=== PATIENT | female | born 1970 | race Caucasian/White ===

== ENCOUNTER → 2018-01-08 | Day surgery (SDC) | payer OTHER ==
[~2018-01-08] MED LIST: DEXAMETHASONE SOD PHOS 20 MG/5 ML VIAL.; LIDOCAINE 1% PF 5 ML VIAL.; MORPHINE SULFATE 4 MG/ML DISP.SYRIN. IV; ONDANSETRON PF 4 MG/2 ML VIAL.; ONDANSETRON PF 4 MG/2 ML VIAL. IV; PROCHLORPERAZINE 10 MG/2 ML VIAL. IV; PROPOFOL 20 ML IV; ROCURONIUM 50 MG/5 ML VIAL.; SEVOFLURANE 31 TO 60 MINUTES. IH; ceFAZolin 2GM PREMIX 2 GM/50 ML BAG IV; fentaNYL PF VIAL 100 MCG/2 ML VIAL; oxyCODONE/APAP 5/325 1 TAB TABLET PO
[2018-01-08] MEDS: IV RINGERS,LACTATED 1000ML 1,000 ML IV (10:55)
[2018-01-08] MEDS: BUPIVACAINE-EPI 0.25%-1:200000 50 ML VIAL. (12:17)
[2018-01-08] MEDS: BACITRACIN TOPICAL OINT 14GM TUBE. TP (12:24)
[2018-01-08] MEDS: fentaNYL PF VIAL 100 MCG/2 ML VIAL IV ×3 (13:04→13:25)
[2018-01-08] MEDS: LIDOCAINE 1% PF 2 ML VIAL. ID (13:24)
[2018-01-08] MEDS: oxyCODONE/APAP 5/325 1 TAB TABLET PO (13:32)
== END | disposition home or self-care (01) ==
LOC: SURG 10:21
DX: K64.4 Residual hemorrhoidal skin tags (principal); K64.8 Other hemorrhoids; I10 Essential (primary) hypertension; M19.90 Unspecified osteoarthritis, unspecified site; F32.9 Major depressive disorder, single episode, unspecified; F41.9 Anxiety disorder, unspecified; F17.200 Nicotine dependence, unspecified, uncomplicated; Z90.49 Acquired absence of other specified parts of digestive tract; Z98.890 Other specified postprocedural states; Z98.51 Tubal ligation status; Z90.710 Acquired absence of both cervix and uterus; Z90.721 Acquired absence of ovaries, unilateral
CPT/HCPCS: 46260; 88304; J0690; J1100; J2405; J2704; J3010

== ENCOUNTER → 2018-10-25 | Outpatient (CLI) | payer OTHER ==
[2018-01-08 13:50] VITALS: BP 135/70
[~2018-10-25] MED LIST changes: +CLON1TAB11 PO; -DEXAMETHASONE SOD PHOS 20 MG/5 ML VIAL.; +DULO30CA2 PO; +GABA600T7 PO; +HYDR-2145 PO; +IBUP-1060 PO; -LIDOCAINE 1% PF 5 ML VIAL.; -MORPHINE SULFATE 4 MG/ML DISP.SYRIN. IV; -ONDANSETRON PF 4 MG/2 ML VIAL.; -ONDANSETRON PF 4 MG/2 ML VIAL. IV; -PROCHLORPERAZINE 10 MG/2 ML VIAL. IV; -PROPOFOL 20 ML IV; -ROCURONIUM 50 MG/5 ML VIAL.; -SEVOFLURANE 31 TO 60 MINUTES. IH; +TIZA4TAB PO; +TOPI200T25 PO; +TRAM50TA PO; +TRAZ150T49 PO; +TRAZ300T2 PO; +VALS160T3 PO; +VERA120T PO; +VERA240C2 PO; -ceFAZolin 2GM PREMIX 2 GM/50 ML BAG IV; -fentaNYL PF VIAL 100 MCG/2 ML VIAL; -oxyCODONE/APAP 5/325 1 TAB TABLET PO
--- NOTE | 2018-10-25 12:41 | KCIC ---
EXAM: Cervical spine MRI without contrast. HISTORY: Pain. TECHNIQUE: Multiplanar, multisequence magnetic resonance imaging of the cervical spine was performed without contrast. COMPARISON: 11/09/2017 FINDINGS: There is no significant listhesis. The vertebral maldonado are normal in height. There is no suspicious osseous lesion. There is a suspected bone island within T1. There are disc bulges at multiple levels. There is slight deformation of the cervical spinal cord at multiple levels. No central canal stenosis or spinal cord signal abnormality is seen. The posterior fossa and skull base are unremarkable. At C2-C3, there is minimal endplate remodeling. There is minimal facet arthropathy. There is no stenosis. At C3-C4, there is minimal endplate remodeling. There is minimal right and mild left facet arthropathy. There is no stenosis. At C4-C5, there is minimal endplate remodeling. There is mild bilateral facet arthropathy. There is mild left foraminal stenosis. At C5-C6, there is a shallow broad-based posterior central to right paracentral disc protrusion superimposed on minimal endplate remodeling. There is minimal right and mild left facet arthropathy. There is minimal left foraminal stenosis. There is abutment of the right ventral aspect of the spinal cord without significant central canal stenosis. At C6-C7, there is a posterior central to left paracentral disc protrusion. There is minimal facet arthropathy. There are incidental small dilated nerve root sheath cysts within the neural foramina. There is no significant stenosis. At C7-T1, there is mild facet arthropathy. There is minimal left foraminal stenosis. IMPRESSION: Minimal degenerative change within the cervical spine, described in detail above. There is suspected mild associated left foraminal stenosis at C4-C5 and minimal associated left foraminal stenosis at C5-C6. These findings are similar compared to the prior study, allowing for differences in imaging technique. Electronically signed by: Usha So MD (10/25/2018 12:38 PM) [facility]
== END | disposition home or self-care (01) ==
LOC: KCIC MRI 11:03
DX: M47.892 Other spondylosis, cervical region (principal); M12.88 Other specific arthropathies, not elsewhere classified, other specified site; M50.222 Other cervical disc displacement at C5-C6 level; Z90.710 Acquired absence of both cervix and uterus
CPT/HCPCS: 72141

== ENCOUNTER 2019-08-13 20:30 | Inpatient (IN) | payer OTHER ==
[~2019-08-13] VITALS: Ht 172.7 cm; Wt 96.2 kg
[~2019-08-13 20:30] MED LIST changes: -CLON1TAB11 PO; +CLONAZEPAM1 MG PO; -TIZA4TAB PO; +TIZA4TAB2 PO
[2019-08-13] MEDS: HYDROmorphone 2 MG/ML VIAL IV PRN (22:16)
[2019-08-13 23:00] VITALS: BP 135/64
[2019-08-14] MEDS ORDERED: TELM80TA8 (00:42)
[2019-08-14] MEDS ORDERED: VERA240C4 (00:42)
[2019-08-14] MEDS: HYDROmorphone 2 MG/ML VIAL IV PRN ×6 (01:52→20:05)
[2019-08-14] MEDS ORDERED: PRAM0.5T (02:05)
[2019-08-14] MEDS ORDERED: TRAZ150T49 (02:05)
[2019-08-14 03:00] VITALS: BP 132/72
[2019-08-14 05:14] LABS: BASO % 0 % (0-3); EOS # 0.1 x10^3/uL (0.0-0.7); EOS % 1 % (0-3); HEMATOCRIT 38.8 % (36.0-47.0); HEMOGLOBIN 12.9 g/dL (12.0-15.5); LYMPH # 1.9 x10^3/uL (1.0-4.8); LYMPH % 23 % (24-48); MEAN CORPUSCULAR HEMOGLOBIN 30 pg (25-35); MEAN CORPUSCULAR HGB CONC 33 g/dL (31-37); MEAN CORPUSCULAR VOLUME 89 fL (79-100); MONO # 0.5 x10^3/uL (0.0-1.1); MONO % 6 % (0-9); NEUT # 5.7 x10^3/uL (1.8-7.7); NEUT % 70 % (31-73); PLATELET COUNT 173 x10^3/uL (140-400); RED BLOOD COUNT 4.37 x10^6/uL (3.50-5.40); WHITE BLOOD COUNT 8.2 x10^3/uL (4.0-11.0)
[2019-08-14 05:46] LABS: ALBUMIN 3.5 g/dL (3.4-5.0); C-REACTIVE PROTEIN 3.5 mg/L (0-3.3); CALCIUM 8.8 mg/dL (8.5-10.1); CREATININE 0.8 mg/dL (0.6-1.0); GFR 75.9; POTASSIUM 3.8 mmol/L (3.5-5.1); TOTAL BILIRUBIN 0.2 mg/dL (0.2-1.0); TOTAL PROTEIN 7.1 g/dL (6.4-8.2)
[2019-08-14 07:00] VITALS: BP 140/78
[2019-08-14 11:00] VITALS: BP 119/71
--- NOTE | 2019-08-14 12:26 | HP ---
ADMIT DATE: 08/13/2019 HISTORY OF PRESENT ILLNESS: The patient is a 49-year-old female patient who presented to the Emergency Room of [facility] complaining of mid abdominal pain that has been going on for the last 2 months, has gotten a lot worse over the last 2 days. She rates her pain as a 10/10. She did complain of nausea, but no vomiting. She denied any diarrhea. The patient states her last normal bowel movement was on Sunday, which is about for 3 days ago. She also denied any chest pain or shortness of breath, had no fever. Denied any urinary discomfort. The pain medication improves the pain, but the food is at the times aggravated. She was extensively investigated in the Emergency Room and has had lab work done, which showed that her white cell count, hemoglobin, hematocrit and platelets are all within normal range. Her chemistry was also unremarkable. Urinalysis was also unremarkable. She has had a CT scan of the abdomen and pelvis, which basically showed that the liver, spleen and bilateral adrenal glands and pancreas are normal in appearance, gallbladder surgically absent. No significant intrahepatic or extrahepatic biliary ductal dilatation. The abdominal aorta is normal in course and caliber. There are no pathologically enlarged lymph nodes in the abdomen and pelvis. There is no abdominal free fluid. There is no free intraperitoneal air. Kidneys enhance symmetrically. There is a 3 mm calculus in the inferior pole of the right kidney. No hydronephrosis. There is a 10-mm cyst in the interpolar left kidney. Urinary bladder is within normal limits given degree of distention. There is a cystic lesion, which arises off the vaginal cuff and measures 2.3 x 2.4 cm. Small and large bowels are normal in caliber. No evidence of bowel obstruction or inflammation. Appendix not definitely visualized. No pericecal inflammatory changes are present. No suspicious osseous abnormalities identified and the impression is, there is no acute abnormality identified in the abdomen and pelvis. She has 3 mm nonobstructing calculus identified in the inferior border of the right kidney, cystic lesion along the vaginal cuff measuring 2.3 x 2.4 cm, this appears more similar compared to prior examination with similar finding is noted measuring approximately 1.7 x 1.8. Given that, there is no abnormality that is obvious, a decision was made to transfer her to [facility] to consult the garnetter and perhaps the surgical team to assist with evaluation. PAST MEDICAL HISTORY: Significant for hypertension, osteoarthritis, and migraine headache. PAST SURGICAL HISTORY: History is extensive. She has had tonsillectomy, breast reduction surgery, back surgery, bilateral shoulder arthroscopic surgery, right ulnar nerve transposition, appendectomy, cholecystectomy and she has tubal ligation, right ovary and right salpingectomy, had total abdominal hysterectomy followed by left ovary and left salpingectomy. She has bilateral knee arthroscopic surgery and left foot fusion. She has also esophageal stricture dilated 3 times and she underwent esophagogastroduodenoscopy and colonoscopy. ALLERGIES: SHE IS ALLERGIC TO ATROPINE, TITANIUM, TIZANIDINE, VARENICLINE TARTRATE (CHANTIX). MEDICATIONS: She is currently on following medications: She is on albuterol sulfate 2 puffs every 4 hours, verapamil 120 mg daily, Celebrex 200 mg daily, meloxicam 7.5 mg daily, naproxen 375 mg, hydrocodone/APAP 15 mL solution every 6 hours, gabapentin 600 mg daily, Topamax 200 mg once a day, rizatriptan one tablet as needed, prednisone 50 mg daily, Lidoderm patch applied topically 3 times a day as needed. FAMILY HISTORY: She has 4 brothers and one sister, older. Her father at age of 57 because of lung cancer and mother at the age of 82 because of congestive heart failure. SOCIAL HISTORY: She is , has a son and a daughter. She quit smoking about 3 months ago. She used to smoke 1-1/2 to 2 packs a day for more than 15 years. She does not use any illicit drugs. She used to be a elementary school principal. REVIEW OF SYSTEMS: The patient denies any blurring of vision, cataract, glaucoma or macular degeneration. Denied any earache, tinnitus or sensorineural deafness. Denied any nosebleeds, stuffy nose or postnasal drip. Denied any sore throat, sore tongue. Has nausea, but no vomiting. Did complain of dysphagia and required dilatation versus esophageal stricture 3 times. Denied any hematemesis, melena or hematochezia. Denied any dysuria, frequency or hematuria. Denied any chest pain, orthopnea, or paroxysmal nocturnal dyspnea. Denied any cough, phlegm or hemoptysis. PHYSICAL EXAMINATION: GENERAL: On arrival to the Emergency Room, she looked well and was clearly in no apparent respiratory distress. No pallor, jaundice, cyanosis or thyromegaly. No jugular venous distention. No limb edema. VITAL SIGNS: Her heart rate was 81, blood pressure was 131/71, temperature was 97.9, respiratory rate was 16, and oxygen saturation was 98%. HEAD, EYES, EARS, NOSE AND THROAT: Showed normocephalic and atraumatic. NECK: Supple. HEART: Showed normal first and second heart sounds. No gallop or murmur. CHEST: Clear to auscultation. No crepitation or rhonchi. ABDOMEN: Distended, soft and nontender. NEUROLOGIC: She was awake, alert, responding appropriately. All cranial nerves intact. EXTREMITIES: She moves extremities without difficulty. She ambulates without assistance or assistive devices. LABORATORY DATA: Showed a white cell count 11,000, hemoglobin 14.8, hematocrit 44, MCV 87 and platelet count 216,000 with normal manual differential. Her chemistry showed a serum sodium 140, potassium 3.9, chloride 103, bicarbonate 25, anion gap of 12, BUN 20, creatinine 0.8, estimated GFR was 76 mL per minute. Her glucose 93, calcium was 9.2. Her total bilirubin, AST, ALT, alkaline phosphatase were normal. Total protein 8.1, albumin was 3.9 and lipase was 136. The CT scan showed that the patient has no acute abnormality identified in the abdomen and pelvis. She has a 3 mm nonobstructing calculus identified in the inferior pole of the right kidney, has cystic lesion along the vaginal cuff measures 2.3 x 2.4 cm. ASSESSMENT AND PLAN: The patient was therefore transferred to [facility] to consult the Gastroenterology team. The patient has numerous intra-abdominal surgeries and I wonder whether adhesion is might be contributing to her abdominal pain and bloating and fullness. MELBA RHODES MD DR: MERRY/mahesh JOB#: [id number] / [id number]
--- NOTE | 2019-08-14 13:20 | PN ---
DATE: 08/14/2019 SUBJECTIVE: The patient is resting, slightly propped up in bed, in no apparent respiratory distress. On questioning her, she continued to complain of abdominal distention, abdominal bloating, and pain. She is tolerating her diet without any problem. We did actually order her sed rate and CRP. Her sedimentation rate is high at 50 mm per hour and C-reactive protein was slightly elevated at 3.5 mg/liter. PHYSICAL EXAMINATION: GENERAL: On examining her, she looked well and was clearly in no apparent respiratory distress. No pallor, jaundice, cyanosis or thyromegaly. No jugular venous distention. No limb edema. VITAL SIGNS: Her heart rate was 88, blood pressure 140/78, temperature 97.8, respiratory rate was 18, and oxygen saturation was 96% on room air. HEAD, EYES, EARS, NOSE AND THROAT: Showed normocephalic, atraumatic. NECK: Supple. CARDIAC: Normal first and second heart sounds. No gallop or murmur. CHEST: Clear to auscultation. No crepitation or rhonchi. ABDOMEN: Distended, soft, diffusely tender. No guarding or rigidity. No organomegaly. All hernial orifices are intact. Bowel sounds normal. NEUROLOGIC: She is grossly intact. LABORATORY DATA: Her lab work this morning showed a white cell count of 8200, hemoglobin 13, hematocrit 39, MCV 89, and platelet count of 173,000. Her sedimentation rate was 50 mm per hour. Serum sodium was 135, potassium 3.8, chloride 103, bicarbonate 27, anion gap of 5, BUN 18, creatinine 0.8, estimated GFR was 76 mL per minute. Her glucose was 96, calcium was 8.8. Total bilirubin, AST, ALT, alkaline phosphatase were normal. Total protein was 7.1, albumin 3.5. C-reactive protein was 3.5 mg/dL. ASSESSMENT: Persistent abdominal pain, abdominal bloating. This has been going on for almost 2 months now and worsened over the last few days. The patient has multitude of abdominal surgeries. CT scan was unremarkable except for some cystic lesion in the vaginal cuff. PLAN: My plan is to continue with her current medication and await the input from the Gastroenterology team. MELBA RHODES MD DR: MERRY/mahesh JOB#: [id number] / [id number]
--- NOTE | 2019-08-14 13:58 | PDOC2 ---
RAEGAN PETER 08/14/19 1358: GI CONSULT Reason For Consult: Abd pain x 2 months HPI: HPI: 49 y/o female from [facility]. Lower/middle abd pain x 2 months. No precipitating events. At first intermittent, maybe worse after eating sometimes. Much worse for the past few days - constant, stabbing, hurts to move, no appetite w/ some nausea. Normal stool on Sunday. Feels really bloated. Was previously seen at [place] in [place] 3 times - first had CT and told had kidney stones, then was given more pain meds and referred to urologist, then had x-ray and told pain was unlikely related to kidney stones and told she was possibly constipated. Completed bowel prep without change in symptoms. Denies reflux/heartburn, vomiting, diarrhea, constipation, melena, and weight loss. Saw red blood in stool a couple weeks ago once. H/o dysphagia w/ past esophageal dilations. More than one colonoscopy in the past - thinks last done at [facility], reportedly never abnormal. S/p cholecystectomy. No liver, pancreas, or PUD history. Occasional NSAID use. When returned to see w/ Dr. Horan, she mentioned difficulty walking short distances due to leg cramping, also says feet get cold. PMH: PMH: HTN, peripheral neuropathy, anxiety/depression, OA, fibromyalgia, seizures cholecystectomy, appendectomy, hysterectomy, BSO, breast reduction, tonsillectomy, bilateral knee and shoulder arthroscopies, left ankle arthroscopy, hemorrhoidectomy FH: Family History: Cancer (brother, father, mother - lung; another brother - p rostate w/ abnormal genetic testing), Other (mother - PVD) Social History: Smoke: <1 pack per day ALCOHOL: rare Drugs: None ROS: GEN: Denies fevers, chills, sweats HEENT: Denies blurred vision, sore throat CV: Denies chest pain RESP: Denies shortness of air, cough GI: Per HPI : Denies hematuria, dysuria ENDO: Denies weight changes NEURO: Denies confusion, dizziness MSK: Denies weakness, joint pain/swelling SKIN: Denies jaundice, pruritus Vitals: Vitals: Vital Signs Date Time Temp Pulse Resp B/P (MAP) Pulse Ox O2 Delivery O2 Flow Rate FiO2 08/14/19 12:53 20 95 Room Air 08/14/19 11:00 97.9 70 119/71 (87) 97.9 Labs: Labs: Laboratory Tests Test 08/14/19 03:55 White Blood Count 8.2 x10^3/uL (4.0-11.0) Red Blood Count 4.37 x10^6/uL (3.50-5.40) Hemoglobin 12.9 g/dL (12.0-15.5) Hematocrit 38.8 % (36.0-47.0) Mean Corpuscular Volume 89 fL (79-100) Mean Corpuscular Hemoglobin 30 pg (25-35) Mean Corpuscular Hemoglobin Concent 33 g/dL (31-37) Red Cell Distribution Width 14.0 % (11.5-14.5) Platelet Count 173 x10^3/uL (140-400) Neutrophils (%) (Auto) 70 % (31-73) Lymphocytes (%) (Auto) 23 % (24-48) Monocytes (%) (Auto) 6 % (0-9) Eosinophils (%) (Auto) 1 % (0-3) Basophils (%) (Auto) 0 % (0-3) Neutrophils # (Auto) 5.7 x10^3/uL (1.8-7.7) Lymphocytes # (Auto) 1.9 x10^3/uL (1.0-4.8) Monocytes # (Auto) 0.5 x10^3/uL (0.0-1.1) Eosinophils # (Auto) 0.1 x10^3/uL (0.0-0.7) Basophils # (Auto) 0.0 x10^3/uL (0.0-0.2) Erythrocyte Sedimentation Rate 50 (0-25) Sodium Level 135 mmol/L (136-145) Potassium Level 3.8 mmol/L (3.5-5.1) Chloride Level 103 mmol/L (98-107) Carbon Dioxide Level 27 mmol/L (21-32) Anion Gap 5 (6-14) Blood Urea Nitrogen 18 mg/dL (7-20) Creatinine 0.8 mg/dL (0.6-1.0) Estimated GFR (Cockcroft-Gault) 75.9 BUN/Creatinine Ratio 23 (6-20) Glucose Level 96 mg/dL (70-99) Calcium Level 8.8 mg/dL (8.5-10.1) Total Bilirubin 0.2 mg/dL (0.2-1.0) Aspartate Amino Transf (AST/SGOT) 8 U/L (15-37) Alanine Aminotransferase (ALT/SGPT) 10 U/L (14-59) Alkaline Phosphatase 60 U/L (46-116) C-Reactive Protein, Quantitative 3.5 mg/L (0-3.3) Total Protein 7.1 g/dL (6.4-8.2) Albumin 3.5 g/dL (3.4-5.0) Albumin/Globulin Ratio 1.0 (1.0-1.7) Allergies: Coded Allergies: atropine (Verified Allergy, Intermediate, Hives, 01/08/18) titanium (Verified Allergy, Intermediate, SKIN ON AREA TURNED BLACK (ORTHO SX), 08/13/19) tizanidine (Verified Allergy, Intermediate, HIVES -BUT TAKES TIZANIDINE PRN & NO PROBLEM, 01/08/18) varenicline (Verified Allergy, Intermediate, SEIZURES, 08/13/19) Medications: Current Medications Medications (Trade) Dose Ordered Sig/Mike Route PRN Reason Start Time Stop Time Status Last Admin Dose Admin Hydromorphone HCl (Dilaudid) 1 mg PRN Q3HRS PRN IV SEVERE PAIN 7-10 08/13/19 21:30 08/14/19 12:53 Imaging: Imaging: CT A/P w/ IV contrast 08/13/19 No acute abnormality. 3mm nonobstructing calculus in inferior pole of right kidney. Cystic lesion along vaginal cuff (present also in 2011). PE: GEN: uncomfortable HEENT: Atraumatic, PERRL LUNGS: CTAB HEART: RRR ABD: quiet BS, some distention, diffuse discomfort EXTREMITY: No edema SKIN: No rashes, no jaundice NEURO/PSYCH: A & O 3 A/P: A/P: Lower abd pain, nausea/decreased appetite, bloating - CT unrevealing H/o esophageal dilations CRC screen - UTD S/p cholecystectomy, multiple abd surgeries BLE cramping w/ exertion, nephrolithiasis +tobacco -- Check SBS and EM, also ask for surgery opinion. TITO HORAN MD 08/14/19 1939: RAEGAN PETER Aug 14, 2019 13:58 TITO HORAN MD Aug 14, 2019 14:02
[2019-08-14 15:00] VITALS: BP 143/75
[2019-08-14 19:00] VITALS: BP 144/75
[2019-08-14] MEDS: FAMOTIDINE 20 MG/2 ML VIAL IVP SCH (21:52)
[2019-08-14] MEDS: traZODone 50 MG TABLET. PO SCH (21:53)
[2019-08-14] MEDS: VERAPAMIL SR 120 MG TABLET.ER. PO SCH (21:53)
[2019-08-14 23:00] VITALS: BP 98/51
[2019-08-15 03:00] VITALS: BP 91/56
[2019-08-15] MEDS: HYDROmorphone 2 MG/ML VIAL IV PRN ×3 (03:03→11:45)
[2019-08-15 05:34] LABS: HEMATOCRIT 42.7 % (36.0-47.0); HEMOGLOBIN 14.2 g/dL (12.0-15.5); RED BLOOD COUNT 4.83 x10^6/uL (3.50-5.40); RED CELL DISTRIBUTION WIDTH 14.1 % (11.5-14.5); WHITE BLOOD COUNT 10.8 x10^3/uL (4.0-11.0)
[2019-08-15 06:03] LABS: CALCIUM 9.2 mg/dL (8.5-10.1); CREATININE 0.8 mg/dL (0.6-1.0); GFR 75.9; POTASSIUM 3.6 mmol/L (3.5-5.1); TOTAL BILIRUBIN 0.4 mg/dL (0.2-1.0); TOTAL PROTEIN 7.9 g/dL (6.4-8.2)
[2019-08-15] MEDS: FAMOTIDINE 20 MG/2 ML VIAL IVP SCH (08:00)
[2019-08-15 08:04] VITALS: BP 98/44
--- NOTE | 2019-08-15 08:07 | PDOC2 ---
AR FONTENOT STUDY MANAGER 08/15/19 0807: CONSULT Date of Consult Date of Consult DATE: 08/15/19 TIME: 08:00 Reason for Consult Reason for Consult: abdominal pain Referring Physician Referring Physician: Dr Horan Identification/Chief Complaint Chief Complaint abdominal pain Source Source: Chart review, Patient History of Present Illness Reason for Visit: Reports lower abdominal pain x 2 months, has been seen multiple times [place]--treated for kidney stone, urology evaluated, treated for constipation. Nothing has improved the pain. Colonoscopy in past. Denies any diarrhea Pain has been progressively worsening, + associated nausea, may be worse after eating sometimes Hx of yomi, appy, hysterectomy Previous hemorrhoidectomy with Dr Gilmore last year Past Medical History Cardiovascular: HTN Pulmonary: No pertinent hx CENTRAL NERVOUS SYSTEM: Periperal neuropathy, Seizure GI: No pertinent hx Heme/Onc: No pertinent hx Hepatobiliary: No pertinent hx Psych: Anxiety, Depression Musculoskeletal: Osteoarthritis Rheumatologic: Fibromyalgia Infectious disease: No pertinent hx Renal/: No pertinent hx Endocrine: No pertinent hx Past Surgical History Past Surgical History: Arthroscopy, Cholecystectomy, Tonsillectomy, Other Family History Family History: Coronary Artery Disease, Heart Disease Social History <1 pack per day ALCOHOL: rare Drugs: None Lives: with Family Current Medications Current Medications Current Medications Hydromorphone HCl (Dilaudid) 1 mg PRN Q3HRS PRN IV SEVERE PAIN 7-10 Last administered on 08/15/19at 03:03; Start 08/13/19 at 21:30 Famotidine (Pepcid Vial) 20 mg BID IVP Last administered on 08/14/19at 21:52; Start 08/14/19 at 21:00 Pramipexole Dihydrochloride (miraPEX) 0.5 mg DAILY PO ; Start 08/15/19 at 09:00 Losartan Potassium (Cozaar) 100 mg DAILY PO ; Start 08/15/19 at 09:00 Trazodone HCl (Desyrel) 150 mg QHS PO Last administered on 08/14/19at 21:53; Start 08/14/19 at 21:00 Verapamil HCl (Calan Sr) 240 mg BID PO Last administered on 08/14/19at 21:53; Start 08/14/19 at 21:00 Active Scripts Active Reported Pramipexole Dihydrochloride (Pramipexole Di-Hcl) 0.5 Mg Tablet 0.5 Mg DAILY Trazodone Hcl 150 Mg Tablet 150 QHS Verapamil Sr (Verapamil HCl) 240 Mg Cap24h.pel 240 BID Telmisartan 80 Mg Tablet 80 DAILY Allergies Allergies: Coded Allergies: atropine (Verified Allergy, Intermediate, Hives, 01/08/18) titanium (Verified Allergy, Intermediate, SKIN ON AREA TURNED BLACK (ORTHO SX), 08/13/19) tizanidine (Verified Allergy, Intermediate, HIVES -BUT TAKES TIZANIDINE PRN & NO PROBLEM, 01/08/18) varenicline (Verified Allergy, Intermediate, SEIZURES, 08/13/19) ROS General: No: Chills, Other (fevers ) PSYCHOLOGICAL ROS: No: Anxiety, Depression Eyes: No Blurry vision, No Double vision HEENT: No: Heacaches, Sore Throat Hematological and Lymphatic: No: Bleeding Problems, Blood Clots Respiratory: No: Cough, Shortness of breath Cardiovascular: No Chest Pain Gastrointestinal: Yes Other (see hpi) Genitourinary: No Dysuria, No Hematuria Musculoskeletal: No Joint Pain, No Muscle Pain Neurological: No Impaired Coord/balance, No Numbness/Tingling Skin: No Pruritus, No Rash Physical Exam General: Alert, Oriented X3, Cooperative, No acute distress HEENT: Atraumatic, PERRLA Lungs: Clear to auscultation, Normal air movement Heart: Regular rate, Normal S1, Normal S2 Abdomen: Soft, Other (ND, generalized TTP, worse across lower abdomen ) Extremities: No clubbing, No cyanosis Skin: No rashes, No breakdown Neuro: Normal gait, Normal speech Psych/Mental Status: Mental status NL, Mood NL MUSCULOSKELETAL: No deformity, No swelling Vitals VITALS Vital Signs Date Time Temp Pulse Resp B/P (MAP) Pulse Ox O2 Delivery O2 Flow Rate FiO2 08/15/19 03:48 Room Air 08/15/19 03:00 98.4 69 18 91/56 (68) 96 98.4 Labs Labs Laboratory Tests Test 08/14/19 03:55 08/14/19 14:45 08/15/19 05:25 White Blood Count 8.2 x10^3/uL (4.0-11.0) 10.8 x10^3/uL (4.0-11.0) Red Blood Count 4.37 x10^6/uL (3.50-5.40) 4.83 x10^6/uL (3.50-5.40) Hemoglobin 12.9 g/dL (12.0-15.5) 14.2 g/dL (12.0-15.5) Hematocrit 38.8 % (36.0-47.0) 42.7 % (36.0-47.0) Mean Corpuscular Volume 89 fL (79-100) 89 fL (79-100) Mean Corpuscular Hemoglobin 30 pg (25-35) 29 pg (25-35) Mean Corpuscular Hemoglobin Concent 33 g/dL (31-37) 33 g/dL (31-37) Red Cell Distribution Width 14.0 % (11.5-14.5) 14.1 % (11.5-14.5) Platelet Count 173 x10^3/uL (140-400) 208 x10^3/uL (140-400) Neutrophils (%) (Auto) 70 % (31-73) Lymphocytes (%) (Auto) 23 % (24-48) Monocytes (%) (Auto) 6 % (0-9) Eosinophils (%) (Auto) 1 % (0-3) Basophils (%) (Auto) 0 % (0-3) Neutrophils # (Auto) 5.7 x10^3/uL (1.8-7.7) Lymphocytes # (Auto) 1.9 x10^3/uL (1.0-4.8) Monocytes # (Auto) 0.5 x10^3/uL (0.0-1.1) Eosinophils # (Auto) 0.1 x10^3/uL (0.0-0.7) Basophils # (Auto) 0.0 x10^3/uL (0.0-0.2) Erythrocyte Sedimentation Rate 50 (0-25) Sodium Level 135 mmol/L (136-145) 139 mmol/L (136-145) Potassium Level 3.8 mmol/L (3.5-5.1) 3.6 mmol/L (3.5-5.1) Chloride Level 103 mmol/L (98-107) 102 mmol/L (98-107) Carbon Dioxide Level 27 mmol/L (21-32) 28 mmol/L (21-32) Anion Gap 5 (6-14) 9 (6-14) Blood Urea Nitrogen 18 mg/dL (7-20) 13 mg/dL (7-20) Creatinine 0.8 mg/dL (0.6-1.0) 0.8 mg/dL (0.6-1.0) Estimated GFR (Cockcroft-Gault) 75.9 75.9 BUN/Creatinine Ratio 23 (6-20) 16 (6-20) Glucose Level 96 mg/dL (70-99) 97 mg/dL (70-99) Calcium Level 8.8 mg/dL (8.5-10.1) 9.2 mg/dL (8.5-10.1) Total Bilirubin 0.2 mg/dL (0.2-1.0) 0.4 mg/dL (0.2-1.0) Aspartate Amino Transf (AST/SGOT) 8 U/L (15-37) 13 U/L (15-37) Alanine Aminotransferase (ALT/SGPT) 10 U/L (14-59) 14 U/L (14-59) Alkaline Phosphatase 60 U/L (46-116) 71 U/L (46-116) C-Reactive Protein, Quantitative 3.5 mg/L (0-3.3) Total Protein 7.1 g/dL (6.4-8.2) 7.9 g/dL (6.4-8.2) Albumin 3.5 g/dL (3.4-5.0) 4.0 g/dL (3.4-5.0) Albumin/Globulin Ratio 1.0 (1.0-1.7) 1.0 (1.0-1.7) Lactic Acid Level 0.6 mmol/L (0.4-2.0) Laboratory Tests Test 08/14/19 14:45 08/15/19 05:25 Lactic Acid Level 0.6 mmol/L (0.4-2.0) White Blood Count 10.8 x10^3/uL (4.0-11.0) Red Blood Count 4.83 x10^6/uL (3.50-5.40) Hemoglobin 14.2 g/dL (12.0-15.5) Hematocrit 42.7 % (36.0-47.0) Mean Corpuscular Volume 89 fL (79-100) Mean Corpuscular Hemoglobin 29 pg (25-35) Mean Corpuscular Hemoglobin Concent 33 g/dL (31-37) Red Cell Distribution Width 14.1 % (11.5-14.5) Platelet Count 208 x10^3/uL (140-400) Sodium Level 139 mmol/L (136-145) Potassium Level 3.6 mmol/L (3.5-5.1) Chloride Level 102 mmol/L (98-107) Carbon Dioxide Level 28 mmol/L (21-32) Anion Gap 9 (6-14) Blood Urea Nitrogen 13 mg/dL (7-20) Creatinine 0.8 mg/dL (0.6-1.0) Estimated GFR (Cockcroft-Gault) 75.9 BUN/Creatinine Ratio 16 (6-20) Glucose Level 97 mg/dL (70-99) Calcium Level 9.2 mg/dL (8.5-10.1) Total Bilirubin 0.4 mg/dL (0.2-1.0) Aspartate Amino Transf (AST/SGOT) 13 U/L (15-37) Alanine Aminotransferase (ALT/SGPT) 14 U/L (14-59) Alkaline Phosphatase 71 U/L (46-116) Total Protein 7.9 g/dL (6.4-8.2) Albumin 4.0 g/dL (3.4-5.0) Albumin/Globulin Ratio 1.0 (1.0-1.7) Images Images CT [facility]--IMPRESSION: 1. No acute abnormality is identified in abdomen and pelvis. 2. 3 mm nonobstructing calculus is identified in inferior pole the right kidney. 3. Cystic lesion along the vaginal cuff measures 2.3 x 2.4 cm. This appears more simple compared to prior examination from 11/10/2011 where similar finding is noted measuring approximately 1.7 x 1.8 cm. Further evaluation with pelvic ultrasound may be of benefit for further characterization. Correlate with surgical history. Assessment/Plan Assessment/Plan chronic abdominal pain normal imaging this far, labs normal SBS planned by GI see no surgical indications at this time will have Dr Gilmore review EDER GILMORE MD 08/15/19 1630: CONSULT Assessment/Plan Assessment/Plan Patient seen and she was heading down for small bowel series. Chronic abdominal pain for the last 2 months unrelenting. Etiology unknown she's had a significant workup CT scans multiple position visits without determine any etiology. Does not appear to be surgical indications at this point we'll follow up on her small bowel series area agree with Kayce assessment and plan AR FONTENOT APRN Aug 15, 2019 08:07 EDER GILMORE MD Aug 15, 2019 08:26
[2019-08-15] MEDS ORDERED: BARIUM SULFATE 60% 355 ML SUSP PO ONE (08:30)
[2019-08-15] MEDS: PRAMIPEXOLE 0.25 MG TABLET. PO SCH (09:00)
[2019-08-15] MEDS: LOSARTAN POTASSIUM 50 MG TABLET. PO SCH (09:00)
[2019-08-15] MEDS: VERAPAMIL SR 120 MG TABLET.ER. PO SCH ×2 (09:00→21:00)
--- NOTE | 2019-08-15 10:41 | NUR ---
SW following. Discussed with RN, pt is from home with . Pt having a small bowel series today. RN advised no SW needs at this time. SW will continue to follow.
--- NOTE | 2019-08-15 10:54 | PDOC ---
Objective: Objective: Reviewed notes - no surgical indications. Vital Signs: Vital Signs Date Time Temp Pulse Resp B/P (MAP) Pulse Ox O2 Delivery O2 Flow Rate FiO2 08/15/19 08:04 98.2 56 14 98/44 (62) 98 Room Air 98.2 Labs: Laboratory Tests Test 08/14/19 14:45 08/15/19 05:25 Lactic Acid Level 0.6 mmol/L White Blood Count 10.8 x10^3/uL Red Blood Count 4.83 x10^6/uL Hemoglobin 14.2 g/dL Hematocrit 42.7 % Mean Corpuscular Volume 89 fL Mean Corpuscular Hemoglobin 29 pg Mean Corpuscular Hemoglobin Concent 33 g/dL Red Cell Distribution Width 14.1 % Platelet Count 208 x10^3/uL Sodium Level 139 mmol/L Potassium Level 3.6 mmol/L Chloride Level 102 mmol/L Carbon Dioxide Level 28 mmol/L Anion Gap 9 Blood Urea Nitrogen 13 mg/dL Creatinine 0.8 mg/dL Estimated GFR (Cockcroft-Gault) 75.9 BUN/Creatinine Ratio 16 Glucose Level 97 mg/dL Calcium Level 9.2 mg/dL Total Bilirubin 0.4 mg/dL Aspartate Amino Transf (AST/SGOT) 13 U/L Alanine Aminotransferase (ALT/SGPT) 14 U/L Alkaline Phosphatase 71 U/L Total Protein 7.9 g/dL Albumin 4.0 g/dL Albumin/Globulin Ratio 1.0 Cortisol AM Sample 3.4 ug/dL Imaging: SBS 08/15/19 pending PE: out of room A/P: Abd pain, nausea, h/o abd surgeries -- Await SBS. Note lowish Cortisol - ?recheck - will review w/ Dr. Horan. RAEGAN PETER Aug 15, 2019 10:54 TITO HORAN MD Aug 15, 2019 10:57
--- NOTE | 2019-08-15 12:05 | RAD ---
Examination: SMALL BOWEL SERIES History: Lower abdominal pain Comparison/Correlation: None Findings: Frontal view was obtained demonstrating right upper quadrant surgical clips. Moderate quantity of stool in the colon. 0.4 cm diameter calcific density overlying the right renal lower pole shadow noted. Calcific densities in the pelvis which probably represent phleboliths are present. Suture material involving the low pelvic midline noted. Fluoroscopy was utilized for 0.5 minutes. Oral contrast was administered for small bowel series exam. A total of 6 fluoroscopic images were acquired. Contrast is noted to dissipate in the small bowel. No high-grade obstructive finding. No strictures identified. Spot fluoroscopic images were obtained but primarily right lower quadrant and pelvic small bowel as the contrast more proximally the small bowel had dissipated. No suspicious filling defects. Terminal ileum distends normally. Appendix is not identified to pass of contrast. Impression: No obstruction, stricture, or definite filling defects. Electronically signed by: Elton Magana MD (08/15/2019 12:02 PM) [facility]
[2019-08-15] MEDS ORDERED: BISACODYL 5 MG TABLET.DR. PO PRN (12:45)
[2019-08-15] MEDS ORDERED: POLYETHYLENE GLYCOL 3350 17 GM PACKET. PO PRN (12:45)
[2019-08-15] MEDS: fentaNYL PF VIAL 100 MCG/2 ML VIAL IVP PRN ×3 (14:09→21:51)
--- NOTE | 2019-08-15 14:49 | PN ---
DATE: 08/15/2019 SUBJECTIVE: The patient is resting, slightly propped up in bed, in no apparent distress. She continued to have some abdominal pain, nausea, but no vomiting. She was seen by the sort line worker and they basically recommended a small bowel series. PHYSICAL EXAMINATION: GENERAL: On examining her today, she looked well and was clearly in no apparent respiratory distress. VITAL SIGNS: Stable. LABORATORY DATA: Showed a white cell count 10,800; hemoglobin 14; hematocrit 42; MCV 89 and platelet count 208,000. Sedimentation rate of 50. Her electrolytes are all within normal range. ASSESSMENT: Chronic abdominal pain in a patient with multiple surgical interventions. PLAN: Await the result of the small bowel series to decide on further management. MELBA RHODES MD DR: MERRY/mahesh JOB#: [id number] / [id number]
[2019-08-15 15:00] VITALS: BP 126/79
[2019-08-15 19:00] VITALS: BP 109/77
[2019-08-15] MEDS: FAMOTIDINE 20 MG TABLET. PO SCH (21:50)
[2019-08-15] MEDS: traZODone 50 MG TABLET. PO SCH (21:50)
[2019-08-15 23:00] VITALS: BP 91/57
[2019-08-16 03:00] VITALS: BP 95/61
[2019-08-16] MEDS: fentaNYL PF VIAL 100 MCG/2 ML VIAL IVP PRN ×6 (03:35→21:07)
[2019-08-16 07:00] VITALS: BP 104/61
[2019-08-16] MEDS: VERAPAMIL SR 120 MG TABLET.ER. PO SCH ×2 (09:00→21:04)
[2019-08-16] MEDS: LOSARTAN POTASSIUM 50 MG TABLET. PO SCH (09:00)
[2019-08-16] MEDS: PRAMIPEXOLE 0.25 MG TABLET. PO SCH (09:03)
[2019-08-16 11:00] VITALS: BP 99/56
--- NOTE | 2019-08-16 14:10 | PDOC ---
SURGICAL PROGRESS NOTE Subjective still complains of abdominal pain "killing me" Vital Signs Vital Signs Date Time Temp Pulse Resp B/P (MAP) Pulse Ox O2 Delivery O2 Flow Rate FiO2 08/16/19 12:20 Room Air 08/16/19 09:00 69 99/56 08/16/19 07:00 97.7 16 94 97.7 I&O Intake and Output 08/16/19 07:00 Intake Total 300 ml Balance 300 ml Intake Oral 300 ml # Voids 2 PATIENT HAS A HAMILTON: No General: Alert Abdomen: Soft, Other (diffusely TTP) Labs Laboratory Tests Test 08/14/19 14:45 08/15/19 05:25 Lactic Acid Level 0.6 mmol/L (0.4-2.0) White Blood Count 10.8 x10^3/uL (4.0-11.0) Red Blood Count 4.83 x10^6/uL (3.50-5.40) Hemoglobin 14.2 g/dL (12.0-15.5) Hematocrit 42.7 % (36.0-47.0) Mean Corpuscular Volume 89 fL (79-100) Mean Corpuscular Hemoglobin 29 pg (25-35) Mean Corpuscular Hemoglobin Concent 33 g/dL (31-37) Red Cell Distribution Width 14.1 % (11.5-14.5) Platelet Count 208 x10^3/uL (140-400) Sodium Level 139 mmol/L (136-145) Potassium Level 3.6 mmol/L (3.5-5.1) Chloride Level 102 mmol/L (98-107) Carbon Dioxide Level 28 mmol/L (21-32) Anion Gap 9 (6-14) Blood Urea Nitrogen 13 mg/dL (7-20) Creatinine 0.8 mg/dL (0.6-1.0) Estimated GFR (Cockcroft-Gault) 75.9 BUN/Creatinine Ratio 16 (6-20) Glucose Level 97 mg/dL (70-99) Calcium Level 9.2 mg/dL (8.5-10.1) Total Bilirubin 0.4 mg/dL (0.2-1.0) Aspartate Amino Transf (AST/SGOT) 13 U/L (15-37) Alanine Aminotransferase (ALT/SGPT) 14 U/L (14-59) Alkaline Phosphatase 71 U/L (46-116) Total Protein 7.9 g/dL (6.4-8.2) Albumin 4.0 g/dL (3.4-5.0) Albumin/Globulin Ratio 1.0 (1.0-1.7) Cortisol AM Sample 3.4 ug/dL (4.3-22.4) I have reviewed the following SBFT unremarkable Assessment/Plan unexplained abdominal pain no surgical recs continue supportive care MARTHA CUNNINGHAM MD Aug 16, 2019 14:10
[2019-08-16 15:00] VITALS: BP 100/65
[2019-08-16 19:00] VITALS: BP 132/74
[2019-08-16] MEDS: FAMOTIDINE 20 MG TABLET. PO SCH (21:04)
[2019-08-16] MEDS: traZODone 50 MG TABLET. PO SCH (21:04)
[2019-08-16 23:06] VITALS: BP 101/58
--- NOTE | 2019-08-17 00:31 | PN ---
DATE: 08/16/2019 SUBJECTIVE: The patient continued to complain of abdominal pain without any obvious detectable abnormalities. She has had a CT scan done, which showed no evidence of any obstruction, had a small bowel follow through, which showed that the contrast was noted to dissipate in the small bowel. No high-grade obstructive findings. No stricture identified. Spot fluoroscopic images were obtained, but primarily right lower quadrant and pelvic small bowel as the contrast more proximally had dissipated. No suspicious filling defects. Terminal ileum distends normally. Appendix is not identified to pass contrast and it showed that the patient has no obstruction, stricture or definite filling defect. OBJECTIVE: VITAL SIGNS: Today are stable. Her heart rate was 67, blood pressure 104/60, temperature 97.7, respiratory rate was 16, and oxygen saturation 94%. The other finding, clinical exam is stable. LABORATORY DATA: As of yesterday showed a serum sodium of 139, potassium 3.6, chloride 102, bicarbonate 28, anion gap of 9, BUN 13, creatinine 0.8, estimated GFR was 76 mL per minute. Glucose 97, calcium 9.2. Total bilirubin, AST, ALT, alkaline phosphatase were normal. Total protein was 7.9, albumin was 1. Her cortisol was 3.4 mcg/dL. PLAN: My plan is to continue with current plan of management and await evaluation by the hotel recreational facilities manager and surgical team. MELBA RHODES MD DR: MERRY/mahesh JOB#: [id number] / [id number]
[2019-08-17] MEDS: fentaNYL PF VIAL 100 MCG/2 ML VIAL IVP PRN ×6 (02:45→20:52)
[2019-08-17 03:13] VITALS: BP 94/52
[2019-08-17 04:20] LABS: BASO % 0 % (0-3); EOS # 0.1 x10^3/uL (0.0-0.7); EOS % 1 % (0-3); HEMATOCRIT 39.3 % (36.0-47.0); LYMPH # 2.2 x10^3/uL (1.0-4.8); LYMPH % 28 % (24-48); MEAN CORPUSCULAR HEMOGLOBIN 29 pg (25-35); MEAN CORPUSCULAR HGB CONC 33 g/dL (31-37); MEAN CORPUSCULAR VOLUME 88 fL (79-100); MONO # 0.4 x10^3/uL (0.0-1.1); MONO % 5 % (0-9); NEUT # 5.4 x10^3/uL (1.8-7.7); NEUT % 66 % (31-73); PLATELET COUNT 186 x10^3/uL (140-400); RED BLOOD COUNT 4.45 x10^6/uL (3.50-5.40); RED CELL DISTRIBUTION WIDTH 13.9 % (11.5-14.5); WHITE BLOOD COUNT 8.1 x10^3/uL (4.0-11.0)
[2019-08-17 04:49] LABS: ALBUMIN 3.4 g/dL (3.4-5.0); ALBUMIN/GLOBULIN RATIO 0.9 (1.0-1.7); CALCIUM 8.9 mg/dL (8.5-10.1); CREATININE 0.7 mg/dL (0.6-1.0); GFR 88.6; TOTAL BILIRUBIN 0.2 mg/dL (0.2-1.0); TOTAL PROTEIN 7.1 g/dL (6.4-8.2)
[2019-08-17 07:00] VITALS: BP 79/42
[2019-08-17] MEDS: LOSARTAN POTASSIUM 50 MG TABLET. PO SCH (09:00)
[2019-08-17] MEDS: VERAPAMIL SR 120 MG TABLET.ER. PO SCH ×2 (09:00→20:56)
[2019-08-17] MEDS: PRAMIPEXOLE 0.25 MG TABLET. PO SCH (09:45)
[2019-08-17] MEDS ORDERED: NAPR-514 PO (09:55)
[2019-08-17] MEDS ORDERED: RIZA10TA7 PO (09:55)
[2019-08-17] MEDS ORDERED: IV NORMAL SALINE 500ML BAG 500 ML IV ONE (10:00)
[2019-08-17] MEDS ORDERED: NAPROXEN 500 MG TABLET PO PRN (10:00)
[2019-08-17] MEDS ORDERED: SUMAtriptan SUCCINATE 100 MG TABLET PO PRN (10:15)
[2019-08-17] MEDS: IV NORMAL SALINE 1000ML BAG 1,000 ML IV SCH ×2 (10:29→20:58)
[2019-08-17] MEDS: DEXAMETHASONE SOD PHOS 4 MG/ML VIAL IVP SCH ×2 (10:29→20:54)
[2019-08-17 11:00] VITALS: BP 92/57
--- NOTE | 2019-08-17 12:57 | PN ---
DATE: 08/17/2019 SUBJECTIVE: The patient continued to complain of abdominal pain. She is hypotensive today with a blood pressure down to 80/40. Her serum cortisol was low at 3.4 and therefore, I started her on dexamethasone 2 mg IV twice a day. She was given a bolus of normal saline at 500 and we will continue with 100 mL of normal saline per hour. I will arrange for her to have cosyntropin test tomorrow morning to confirm or exclude the possibility of Georgi's disease for at least hypoadrenalism. OBJECTIVE: GENERAL: When I saw her this morning, she was resting slightly propped up in bed, in no apparent respiratory distress. She was pale, but no jaundice, cyanosis or thyromegaly. No jugular venous distention. No limb edema. VITAL SIGNS: Her heart rate was 63, blood pressure was 79/42, temperature was 97.6, respiratory rate 20, and oxygen saturation was 92% on room air. The rest of clinical examination is stable. She continued to have diffuse abdominal tenderness, however, so far all the imaging studies showed no evidence of any mechanical obstruction or any other pathology in her abdomen. LABORATORY DATA: Her lab work this morning showed a white cell count of 8000, hemoglobin 13, hematocrit 39, MCV 88 and platelet count of 106,000. Her chemistry showed a serum sodium 139, potassium 4, chloride 105, bicarbonate 24, anion gap of 10, BUN 16, creatinine 0.7, estimated GFR was 88 mL per minute. Her glucose was 99, calcium was 8.9. Total bilirubin, AST, ALT, alkaline phosphatase were normal. Lactate dehydrogenase was only 168. Total protein was 7.1, albumin was 3.4 and morning cortisol was very low at 3.4, normal range is 4.3-22.4. 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 MELBA RHODES MD DR: MERRY/mahesh JOB#: [id number] / [id number]
[2019-08-17 15:00] VITALS: BP 106/51
--- NOTE | 2019-08-17 15:01 | PDOC ---
GI PROGRESS NOTES Date Date/Time DATE: 08/17/19 TIME: 14:59 Subjective Subjective No change in chronic abdominal symptoms. Bowel follow-through was normal Cortisol level was low. Agree with plans for ACTH stimulation test tomorrow Continue to look for other potential causes for abdominal pain Objective Vitals Vital Signs Date Time Temp Pulse Resp B/P (MAP) Pulse Ox O2 Delivery O2 Flow Rate FiO2 08/17/19 14:26 Room Air 08/17/19 10:29 Room Air 08/17/19 09:46 Room Air 08/17/19 09:00 63 79/42 08/17/19 09:00 63 79/42 08/17/19 08:30 Room Air 08/17/19 08:00 Room Air 08/17/19 07:00 97.6 63 20 79/42 (54) 92 Room Air 97.6 08/17/19 06:42 Room Air 08/17/19 03:15 Room Air 08/17/19 03:13 98.0 63 16 94/52 (66) 95 Room Air 98.0 08/17/19 02:45 Room Air 08/16/19 23:06 98.3 58 18 101/58 (72) 96 Room Air 98.3 08/16/19 21:53 Room Air 08/16/19 21:07 Room Air 08/16/19 21:04 56 132/74 08/16/19 20:00 Room Air 08/16/19 19:00 98.3 56 20 132/74 (93) 96 Room Air 98.3 08/16/19 18:19 95 Room Air 08/16/19 17:47 Room Air 08/16/19 15:17 Room Air 08/16/19 15:00 97.7 73 16 100/65 (77) 95 Room Air 97.7 Labs Labs Laboratory Tests Test 08/17/19 03:25 White Blood Count 8.1 x10^3/uL (4.0-11.0) Red Blood Count 4.45 x10^6/uL (3.50-5.40) Hemoglobin 13.0 g/dL (12.0-15.5) Hematocrit 39.3 % (36.0-47.0) Mean Corpuscular Volume 88 fL (79-100) Mean Corpuscular Hemoglobin 29 pg (25-35) Mean Corpuscular Hemoglobin Concent 33 g/dL (31-37) Red Cell Distribution Width 13.9 % (11.5-14.5) Platelet Count 186 x10^3/uL (140-400) Neutrophils (%) (Auto) 66 % (31-73) Lymphocytes (%) (Auto) 28 % (24-48) Monocytes (%) (Auto) 5 % (0-9) Eosinophils (%) (Auto) 1 % (0-3) Basophils (%) (Auto) 0 % (0-3) Neutrophils # (Auto) 5.4 x10^3/uL (1.8-7.7) Lymphocytes # (Auto) 2.2 x10^3/uL (1.0-4.8) Monocytes # (Auto) 0.4 x10^3/uL (0.0-1.1) Eosinophils # (Auto) 0.1 x10^3/uL (0.0-0.7) Basophils # (Auto) 0.0 x10^3/uL (0.0-0.2) Sodium Level 139 mmol/L (136-145) Potassium Level 4.0 mmol/L (3.5-5.1) Chloride Level 105 mmol/L (98-107) Carbon Dioxide Level 24 mmol/L (21-32) Anion Gap 10 (6-14) Blood Urea Nitrogen 16 mg/dL (7-20) Creatinine 0.7 mg/dL (0.6-1.0) Estimated GFR (Cockcroft-Gault) 88.6 BUN/Creatinine Ratio 23 (6-20) Glucose Level 99 mg/dL (70-99) Calcium Level 8.9 mg/dL (8.5-10.1) Total Bilirubin 0.2 mg/dL (0.2-1.0) Aspartate Amino Transf (AST/SGOT) 20 U/L (15-37) Alanine Aminotransferase (ALT/SGPT) 16 U/L (14-59) Alkaline Phosphatase 67 U/L (46-116) Lactate Dehydrogenase 168 U/L (81-234) Total Protein 7.1 g/dL (6.4-8.2) Albumin 3.4 g/dL (3.4-5.0) Albumin/Globulin Ratio 0.9 (1.0-1.7) Physical Exam Physical Exam chest- Clear Abdomen soft, mild diffuse tenderness, bowel sounds normal Assessment Assessment Abdominal pain. Since of workup so far is unrevealing except for a low cortisol level. ACTH stimulation test ordered But need to keep other rare causes for abdominal pain in the differential SRIRAM BUCIO MD Aug 17, 2019 15:01
[2019-08-17] MEDS ORDERED: RIZATRIPTAN PO PRN (15:45)
[2019-08-17] MEDS: BENZOCAINE/MENTHOL LOZENGE. PO PRN ×3 (15:46→20:56)
[2019-08-17 16:58] LABS: INFLUENZA A PATIENT NEGATIVE (NEGATIVE); INFLUENZA B PATIENT NEGATIVE (NEGATIVE)
[2019-08-17 19:00] VITALS: BP 132/71
[2019-08-17] MEDS: traZODone 50 MG TABLET. PO SCH (20:55)
[2019-08-17] MEDS: FAMOTIDINE 20 MG TABLET. PO SCH (20:55)
[2019-08-17] MEDS: [UNRECOGNIZED DRUG - OTHER] PO SCH (20:56)
[2019-08-17] MEDS ORDERED: [UNRECOGNIZED DRUG - OTHER] PO SCH (21:00)
[2019-08-17 23:00] VITALS: BP 158/88
[2019-08-18] MEDS: fentaNYL PF VIAL 100 MCG/2 ML VIAL IVP PRN ×7 (00:10→21:30)
[2019-08-18 03:03] VITALS: BP 152/84
[2019-08-18] MEDS: IV NORMAL SALINE 1000ML BAG 1,000 ML IV SCH ×2 (05:58→15:46)
[2019-08-18 08:00] VITALS: BP 153/74
[2019-08-18] MEDS ORDERED: COSYNTROPIN 0.25 MG VIAL IVP ONE (08:15)
[2019-08-18] MEDS: DEXAMETHASONE SOD PHOS 4 MG/ML VIAL IVP SCH ×2 (08:18→21:33)
[2019-08-18] MEDS: PRAMIPEXOLE 0.25 MG TABLET. PO SCH (08:19)
[2019-08-18] MEDS: VERAPAMIL SR 120 MG TABLET.ER. PO SCH ×2 (08:19→21:32)
[2019-08-18] MEDS: LOSARTAN POTASSIUM 50 MG TABLET. PO SCH (08:19)
--- NOTE | 2019-08-18 08:22 | RAD ---
ABD PELVIS RETROPERITON DOPP History: Abdominal pain. Concern for bowel ischemia. Vasculopathy. Comparison: CT August 13, 2019 Technique: Sonographic examination of the mesenteric arteries with visceral Doppler Findings: Aortic velocity 97 cm/s. Patent hepatic artery with normal velocity 86.7 cm/s. Elevated velocity within the superior mesenteric artery proximally measuring 405 cm/s, mid 335 cm/s and distal 270 cm/s. Normal velocity within the celiac artery measures 110 cm/s. Impression: 1. 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 Electronically signed by: Star Ceja DO (08/18/2019 8:19 AM) [facility]
[2019-08-18 10:54] VITALS: BP 95/56
--- NOTE | 2019-08-18 12:22 | PDOC ---
Subjective: Subjective: Doesn't feel any better, not sure if steroids making a difference. Abd felt bloated - maybe more pain? - after eating yesterday but this not consistent. Doesn't have an appetite. Objective: Objective: D/w Dr. Sanabria this morning. Vital Signs: Vital Signs Date Time Temp Pulse Resp B/P (MAP) Pulse Ox O2 Delivery O2 Flow Rate FiO2 08/18/19 12:15 20 95 Room Air 08/18/19 10:54 97.7 73 95/56 (69) 97.7 Labs: Laboratory Tests Test 08/17/19 15:50 08/18/19 08:05 08/18/19 08:45 Influenza Type A Antigen Negative Influenza Type B Antigen Negative Cortisol AM Sample 0.9 ug/dL 14.3 ug/dL Imaging: SBS 08/15 Impression: No obstruction, stricture, or definite filling defects. Abd Doppler 08/18 Impression: 1. 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 PE: GEN: NAD - finishing a large caramel coffee drink LUNGS: room air HEART: RRR ABD: quiet, soft, diffusely non-specifically tender NEURO/PSYCH: A & O 3 A/P: Abd pain, anorexia Low Cortisol ?SMA stenosis - US as above -- Feels the same. Will review next step w/ Dr. Horan. RAEGAN PETER Aug 18, 2019 12:22
--- NOTE | 2019-08-18 13:00 | PN ---
DATE: 08/18/2019 SUBJECTIVE: The patient is resting, slightly propped up in bed, in no apparent respiratory distress. She continued to complain of abdominal bloating and abdominal pain. So far, all our investigation are negative. I did have even ACTH stimulation test as her morning cortisol was high and patient responded very well to her ACTH stimulation and her serum cortisol has risen to 14.3 mcg/dL. On questioning, the patient apparently has been on multiple courses of steroids indicating that she probably has suppressed adrenal gland. PHYSICAL EXAMINATION: GENERAL: When I examined her, she looked well and was clearly in no apparent respiratory distress. No pallor, jaundice, cyanosis or thyromegaly. No jugular venous distension. No lower limb edema. VITAL SIGNS: Her heart rate was 60, blood pressure 152/84, temperature 97.8, respiratory rate was 16, and oxygen saturation was 96% on room air. HEAD, EYES, EARS, NOSE AND THROAT: Normocephalic, atraumatic. NECK: Supple. The rest of clinical exam is stable. So far, all her lab work including a CBC and chemistry are all within acceptable range. Her imaging studies including CT scan and small bowel follow-through showed no evidence of any pathology. She does have a small cyst in the vault of her vagina after she had hysterectomy and recommended that she should be seen by a milk bottling machine operator but that in itself should not explain all her symptoms. I am waiting for the Gastroenterology team to decide if they have any other suggestion. MELBA RHODES MD DR: MERRY/mahesh JOB#: [id number] / [id number]
[2019-08-18] MEDS ORDERED: IOHEXOL 350 MG/ML 100 ML VIAL. IV ONE (13:30)
[2019-08-18] MEDS ORDERED: CONTRAST GIVEN. MC PRN (13:30)
--- NOTE | 2019-08-18 13:51 | NUR ---
SW following. Discussed with RN, pt is from home with / family, ad telma. RN advised no SW needs at this time. SW will continue to follow.
[2019-08-18 15:00] VITALS: BP 124/68
[2019-08-18] MEDS ORDERED: POLYETHYLENE GLYCOL 3350 17 GM PACKET. PO ONE (16:00)
[2019-08-18] MEDS ORDERED: BISACODYL 5 MG TABLET.DR. PO ONE (16:00)
[2019-08-18 19:00] VITALS: BP 116/62
[2019-08-18] MEDS: [UNRECOGNIZED DRUG - OTHER] PO SCH (21:31)
[2019-08-18] MEDS: traZODone 50 MG TABLET. PO SCH (21:33)
[2019-08-18] MEDS: FAMOTIDINE 20 MG TABLET. PO SCH (21:33)
[2019-08-18] MEDS: BENZOCAINE/MENTHOL LOZENGE. PO PRN (21:44)
[2019-08-18 23:00] VITALS: BP 140/71
[2019-08-19] MEDS: IV NORMAL SALINE 1000ML BAG 1,000 ML IV SCH ×3 (01:25→19:58)
[2019-08-19] MEDS: fentaNYL PF VIAL 100 MCG/2 ML VIAL IVP PRN ×4 (01:25→19:58)
[2019-08-19 03:00] VITALS: BP 127/73
[2019-08-19 08:00] VITALS: BP 125/62
[2019-08-19] MEDS: VERAPAMIL SR 120 MG TABLET.ER. PO SCH ×2 (09:00→20:39)
[2019-08-19] MEDS ORDERED: POLYETHYLENE GLYCOL 3350 17 GM PACKET. PO SCH (09:00)
--- NOTE | 2019-08-19 09:42 | PDOC ---
Subjective: Subjective: Feels the same. Is NPO today - ?for possible CTA Not much results w/ enema, Dulcolax, and Miralax - maybe passed some white stuff. Ate dinner last night - no change in abd pain. At home when pain was intermittent, might have had pain after eating sometimes but not always. This pain has been constant since 08/12/19 - basically unchanged w/ eating and stooling, might be worse after moving around a lot. Objective: Objective: Nurse present. Vital Signs: Vital Signs Date Time Temp Pulse Resp B/P (MAP) Pulse Ox O2 Delivery O2 Flow Rate FiO2 08/19/19 08:00 97.9 75 18 125/62 (83) 95 Room Air 97.9 PE: GEN: NAD LUNGS: CTAB HEART: RRR ABD: soft, diffusely tender NEURO/PSYCH: A & O 3 A/P: Abd pain, anorexia Low Cortisol - no change on steroids ?SMA stenosis -- Try Relistor, await x-ray and possible CTA. If no CTA today, okay to eat per GI. Nurse called this afternoon - steroids stopped, received Relistor, no stool, has not had KUB, feels worse and wants more pain medication. She will call for KUB (as recommended yesterday by radiology). Increase Miralax, add Amitiza. Other per Dr. Horan. Hemodynamically unstable?: No Is patient in severe pain?: Yes Is NPO status required?: No RAEGAN PETER Aug 19, 2019 09:42
[2019-08-19] MEDS ORDERED: METHYLNALTREXONE 12 MG/0.6 ML VIAL. SQ ONE (10:00)
[2019-08-19 10:46] VITALS: BP 158/84
[2019-08-19 15:00] VITALS: BP 118/82
[2019-08-19] MEDS: LUBIPROSTONE 24 MCG CAPSULE PO SCH (16:37)
[2019-08-19] MEDS: PANTOPRAZOLE 40 MG TABLET.DR. PO SCH (16:38)
[2019-08-19] MEDS: LOSARTAN POTASSIUM 50 MG TABLET. PO SCH (16:38)
[2019-08-19] MEDS: PRAMIPEXOLE 0.25 MG TABLET. PO SCH (16:38)
--- NOTE | 2019-08-19 17:05 | RAD ---
EXAM: Abdomen, single view. HISTORY: Retained contrast prior to CT angiogram. COMPARISON: 08/15/2019 FINDINGS: A frontal view of the abdomen is obtained. There is contrast throughout the colon. There are few distal colonic diverticula. There are cholecystectomy clips. There is no evidence of bowel obstruction. IMPRESSION: Contrast throughout the entire colon. Electronically signed by: Usha So MD (08/19/2019 5:01 PM) [facility]
[2019-08-19] MEDS ORDERED: PEG 3350/NA SULF,BICARB,CL/KCL 4,000 ML SOLUTION. PO ONE (17:30)
[2019-08-19 19:00] VITALS: BP 132/82
[2019-08-19] MEDS: traZODone 50 MG TABLET. PO SCH (20:38)
[2019-08-19] MEDS: [UNRECOGNIZED DRUG - OTHER] PO SCH (20:39)
[2019-08-19] MEDS: POLYETHYLENE GLYCOL 3350 17 GM PACKET. PO SCH (20:40)
--- NOTE | 2019-08-19 22:36 | PN ---
DATE: 08/19/2019 SUBJECTIVE: The patient is resting, slightly propped up in bed, in no apparent distress. She continued to complain of abdominal pain. She apparently was given Relistor for constipation and she is scheduled for CT angio of the abdomen and pelvis. When I saw her this morning, she is complaining of anxiety and obviously continued abdominal pain. When I examined her, she looked well and was clearly in no apparent distress. Vital signs stable. The rest of clinical exam is stable. The plan is to await the result of CT angio to see if she has any bowel ischemia. MELBA RHODES MD DR: MERRY/mahesh JOB#: [id number] / [id number]
[2019-08-19 23:00] VITALS: BP 124/79
[2019-08-20] MEDS: fentaNYL PF VIAL 100 MCG/2 ML VIAL IVP PRN ×5 (00:45→20:30)
[2019-08-20 03:00] VITALS: BP 125/54
[2019-08-20] MEDS: IV NORMAL SALINE 1000ML BAG 1,000 ML IV SCH ×2 (05:57→16:30)
[2019-08-20 07:00] VITALS: BP 142/71
[2019-08-20] MEDS: LUBIPROSTONE 24 MCG CAPSULE PO SCH (08:00)
[2019-08-20] MEDS: POLYETHYLENE GLYCOL 3350 17 GM PACKET. PO SCH (09:00)
[2019-08-20] MEDS ORDERED: IOHEXOL 300 MG/ML 100ML VIAL. IV ONE (10:30)
[2019-08-20 11:00] VITALS: BP 137/73
[2019-08-20] MEDS ORDERED: IOHEXOL 350 MG/ML 100 ML VIAL. IV ONE (11:15)
[2019-08-20] MEDS: VERAPAMIL SR 120 MG TABLET.ER. PO SCH ×2 (12:27→20:29)
[2019-08-20] MEDS: PANTOPRAZOLE 40 MG TABLET.DR. PO SCH (12:27)
[2019-08-20] MEDS: PRAMIPEXOLE 0.25 MG TABLET. PO SCH (12:28)
[2019-08-20] MEDS: LOSARTAN POTASSIUM 50 MG TABLET. PO SCH (12:28)
--- NOTE | 2019-08-20 13:02 | PDOC ---
Subjective: Subjective: Success w/ [employer] - had KUB and CTA today. Says same amount of pain and has no appetite but apparently ate a whole chicken sandwich from [employer]. Family asks about next steps. Objective: Objective: D/w nurse in hallway - pt did not appear to be in as much pain until I walked in. Vital Signs: Vital Signs Date Time Temp Pulse Resp B/P (MAP) Pulse Ox O2 Delivery O2 Flow Rate FiO2 08/20/19 12:28 78 137/73 08/20/19 11:00 98.4 16 98 Room Air 98.4 Labs: KUB 08/19 IMPRESSION: Contrast throughout the entire colon. KUB 08/20 pending CTA A/P 08/20 pending PE: GEN: NAD LUNGS: CTAB HEART: RRR ABD: BS+, soft, tenderness to light palpation throughout - worse to right NEURO/PSYCH: A & O 3 A/P: Abd pain ?SMA stenosis -- Await today's imaging, may need to ask surgery to revisit. Okay to hold Amitiza and Miralax for now after clean out w/ [employer] - however, may need continued constipation treatment if to remain on narcotics. Hemodynamically unstable?: No Is patient in severe pain?: Yes Is NPO status required?: No RAEGAN PETER Aug 20, 2019 13:02
--- NOTE | 2019-08-20 14:37 | RAD ---
Examination: KUB History: Contrast in bowel on previous examinations. Repeat assessment. Comparison/Correlation: 08/19/2019 KUB x-ray exam Findings: Frontal view of the abdomen was obtained with the patient supine and portable technique. Right upper quadrant surgical clips are present. Left lower quadrant surgical clip is present. There is no contrast identified within bowel. Bowel gas pattern is normal. Bony structures are grossly unremarkable. Impression: No contrast identified within the colon or small intestine. Electronically signed by: Elton Magana MD (08/20/2019 2:34 PM) [facility]
[2019-08-20 15:00] VITALS: BP 147/93
[2019-08-20] MEDS ORDERED: HYDROcodone/APAP 5/325MG 1 TAB TABLET PO PRN (15:00)
--- NOTE | 2019-08-20 16:46 | RAD ---
EXAM: CT Abdomen and Pelvis with IV contrast CLINICAL HISTORY: abd pain, ?SMA stenosis on US. COMPARISON: Ultrasound 08/18/2019 TECHNIQUE: Helical CT of the abdomen and pelvis was performed following the administration of IV contrast. Axial, coronal and sagittal reformatted images were generated. 3-D/MIP reconstructions were generated. ---PQRS compliance statement - One or more of the following individualized dose reduction techniques were utilized for this study: 1. Automated exposure control 2. Adjustment of the mA and/or kV according to patient size 3. Use of iterative reconstruction technique--- FINDINGS: Angiogram: Aorta is normal in caliber throughout without evidence for dissection or aneurysmal dilatation. The origin of the celiac trunk is widely patent. The origin of the SMA is also widely patent. The proximal visualized MISAEL is also grossly patent The MISAEL is also grossly patent. Single bilateral renal arteries are patent, normal in caliber. The common, internal and external iliac arteries are widely patent, normal in caliber. Lower chest: Linear and bandlike densities left lower lobe and lingula likely scarring/atelectasis. Abdomen and pelvis: Liver and biliary system: Hepatic hypoattenuation may be related to phase of contrast or fatty liver. No focal liver lesion. Accounting for cholecystectomy change no biliary ductal dilatation. Spleen: Unremarkable Pancreas: Unremarkable Adrenal glands: Unremarkable Kidneys: Nonobstructing right lower pole renal calculus. Symmetric nephrograms. No focal renal lesion. No hydronephrosis or hydroureter. Lymph nodes/retroperitoneum: No abdominal or pelvic lymphadenopathy. No abdominal or pelvic ascites. Vessels: The arterial phase of contrast doesn't permit for adequate evaluation of the venous structures. Please see angiographic details above. Bowel/Peritoneal cavity: Moderate colonic stool content is seen. Appendix is not convincingly seen. No small or large bowel dilatation. No evidence of bowel obstruction. There has been a hysterectomy. Retroperitoneum/Abdominal wall: Small fat-containing periumbilical hernia is seen. No retroperitoneal lymphadenopathy. No abdominal or pelvic lymphadenopathy. Bladder: Bladder is unremarkable. Bones: Degenerative changes of the hip joints. Multifocal degenerative changes of spine are seen. IMPRESSION: 1. The SMA is widely patent. No obvious stenosis or occlusion is seen. The etiology of the increased peak systolic velocities on the prior ultrasound is unclear, possibly transient spasm. 2. Moderate colonic stool content. No bowel obstruction. 3. Nonobstructing right lower pole renal calculus. Electronically signed by: Lucas Cleary MD (08/20/2019 4:43 PM) [facility]
--- NOTE | 2019-08-20 17:34 | NUR ---
pt called out to inform staff that she had chipped a tooth on food. pt was eating grilled cheese. pt slightly lethargic, but able to answer questions. daughter expressed concern regarding this and RN told them her fentanyl dose might need to be adjusted. pt also informed RN that her toenails had started falling off this visit. pg to Dr. Sanabria regarding above. Fent changed to q6.
--- NOTE | 2019-08-20 18:28 | NUR ---
pt c/o feeling anxious and shaky. states she thinks she is allergic to lortab. offered to get order for non-narcotic pain med such as toradol. pt refused stating it never helps. call placed to Dr. Sanabria and no answer. unable to leave voicemail.
[2019-08-20 19:00] VITALS: BP 137/74
[2019-08-20] MEDS: [UNRECOGNIZED DRUG - OTHER] PO SCH (20:28)
[2019-08-20] MEDS: traZODone 50 MG TABLET. PO SCH (20:29)
[2019-08-20] MEDS ORDERED: fentaNYL PF VIAL 100 MCG/2 ML VIAL IVP PRN (22:30)
[2019-08-20 23:00] VITALS: BP 138/79
--- NOTE | 2019-08-21 | PN ---
DATE: 08/20/2019 SUBJECTIVE: The patient continues to complain of abdominal pain. She apparently has had multiple bowel movements yesterday. She had contrast out the entire colon. She apparently is scheduled for CT angio of the abdomen and pelvis today. On examining her, she looked well and was clearly in no apparent respiratory distress. Her vital signs are stable. Laboratory work showed that her BUN and creatinine are normal. Her H and H are 13 and 39 with normal white cell counts and platelets. So far, all the investigations are unrevealing. I am waiting for the outcome of the CT angiography. She has had bowel ischemia as a reason for her chronic abdominal pain. I will repeat her lab work tomorrow to make sure her kidney function remains good. MLEBA RHODES MD DR: MERRY/mahesh JOB#: [id number] / [id number]
[2019-08-21] MEDS: IV NORMAL SALINE 1000ML BAG 1,000 ML IV SCH (02:22)
[2019-08-21] MEDS: fentaNYL PF VIAL 100 MCG/2 ML VIAL IVP PRN ×3 (02:22→10:49)
[2019-08-21 03:00] VITALS: BP 120/72
[2019-08-21 06:15] LABS: HEMATOCRIT 37.4 % (36.0-47.0); HEMOGLOBIN 12.3 g/dL (12.0-15.5); RED BLOOD COUNT 4.24 x10^6/uL (3.50-5.40); RED CELL DISTRIBUTION WIDTH 13.9 % (11.5-14.5); WHITE BLOOD COUNT 10.7 x10^3/uL (4.0-11.0)
[2019-08-21 06:40] LABS: CALCIUM 8.3 mg/dL (8.5-10.1); CREATININE 0.7 mg/dL (0.6-1.0); GFR 88.6; POTASSIUM 3.2 mmol/L (3.5-5.1)
[2019-08-21 07:00] VITALS: BP 142/76
[2019-08-21] MEDS: PANTOPRAZOLE 40 MG TABLET.DR. PO SCH (07:40)
[2019-08-21] MEDS: VERAPAMIL SR 120 MG TABLET.ER. PO SCH ×2 (09:00→10:47)
[2019-08-21] MEDS: LOSARTAN POTASSIUM 50 MG TABLET. PO SCH ×2 (09:00→10:48)
[2019-08-21] MEDS: PRAMIPEXOLE 0.25 MG TABLET. PO SCH (09:03)
[2019-08-21 11:00] VITALS: BP 148/92
--- NOTE | 2019-08-21 11:35 | NUR ---
Patient's pressed call light and stated that patient "passed out", upon entering room patient was "out" on the bed, a sternal rub brought her back and patient responded and answered orientation questions correctly. Patient's stated that she does this sometimes and has been checked out and they haven't found anything that is suspect cause. Patient's blood pressure was basically unchanged from last pressure taken at 1100. Dr. Sanabria notified of findings.
--- NOTE | 2019-08-21 11:41 | PDOC ---
SURGICAL PROGRESS NOTE Subjective still with pain asked to re-eval some nausea Vital Signs Vital Signs Date Time Temp Pulse Resp B/P (MAP) Pulse Ox O2 Delivery O2 Flow Rate FiO2 08/21/19 11:23 Room Air 08/21/19 11:00 98.4 73 18 148/92 (110) 98 98.4 I&O Intake and Output 08/21/19 07:00 Intake Total 1060 ml Balance 1060 ml Intake Oral 1060 ml # Voids 3 General: Alert, Oriented X3, Cooperative Abdomen: Soft, Other (ttp diffuse ) Labs Laboratory Tests Test 08/21/19 06:00 White Blood Count 10.7 x10^3/uL (4.0-11.0) Red Blood Count 4.24 x10^6/uL (3.50-5.40) Hemoglobin 12.3 g/dL (12.0-15.5) Hematocrit 37.4 % (36.0-47.0) Mean Corpuscular Volume 88 fL (79-100) Mean Corpuscular Hemoglobin 29 pg (25-35) Mean Corpuscular Hemoglobin Concent 33 g/dL (31-37) Red Cell Distribution Width 13.9 % (11.5-14.5) Platelet Count 193 x10^3/uL (140-400) Sodium Level 142 mmol/L (136-145) Potassium Level 3.2 mmol/L (3.5-5.1) Chloride Level 107 mmol/L (98-107) Carbon Dioxide Level 27 mmol/L (21-32) Anion Gap 8 (6-14) Blood Urea Nitrogen 8 mg/dL (7-20) Creatinine 0.7 mg/dL (0.6-1.0) Estimated GFR (Cockcroft-Gault) 88.6 Glucose Level 84 mg/dL (70-99) Calcium Level 8.3 mg/dL (8.5-10.1) Laboratory Tests Test 08/21/19 06:00 White Blood Count 10.7 x10^3/uL (4.0-11.0) Red Blood Count 4.24 x10^6/uL (3.50-5.40) Hemoglobin 12.3 g/dL (12.0-15.5) Hematocrit 37.4 % (36.0-47.0) Mean Corpuscular Volume 88 fL (79-100) Mean Corpuscular Hemoglobin 29 pg (25-35) Mean Corpuscular Hemoglobin Concent 33 g/dL (31-37) Red Cell Distribution Width 13.9 % (11.5-14.5) Platelet Count 193 x10^3/uL (140-400) Sodium Level 142 mmol/L (136-145) Potassium Level 3.2 mmol/L (3.5-5.1) Chloride Level 107 mmol/L (98-107) Carbon Dioxide Level 27 mmol/L (21-32) Anion Gap 8 (6-14) Blood Urea Nitrogen 8 mg/dL (7-20) Creatinine 0.7 mg/dL (0.6-1.0) Estimated GFR (Cockcroft-Gault) 88.6 Glucose Level 84 mg/dL (70-99) Calcium Level 8.3 mg/dL (8.5-10.1) Assessment/Plan reviewed with Dr Peguero, reviewed W/U no surgical indications, normal imaging will sign off AR FONTENOT APRN Aug 21, 2019 11:40
--- NOTE | 2019-08-21 11:58 | PDOC ---
Subjective: Subjective: Feels the same, upset. present. Fainted after walking back from restroom, thinks she has a sinus infection. Wants to leave to see PCP. Questions about [facility] [place] - confirms steroids were unhelpful. Objective: Objective: Staff says eating very well - food from outside. Also says h/o fainting at home w/ previous unrevealing workup per . Vital Signs: Vital Signs Date Time Temp Pulse Resp B/P (MAP) Pulse Ox O2 Delivery O2 Flow Rate FiO2 08/21/19 11:23 Room Air 08/21/19 11:00 98.4 73 18 148/92 (110) 98 98.4 Labs: Laboratory Tests Test 08/21/19 06:00 White Blood Count 10.7 x10^3/uL Red Blood Count 4.24 x10^6/uL Hemoglobin 12.3 g/dL Hematocrit 37.4 % Mean Corpuscular Volume 88 fL Mean Corpuscular Hemoglobin 29 pg Mean Corpuscular Hemoglobin Concent 33 g/dL Red Cell Distribution Width 13.9 % Platelet Count 193 x10^3/uL Sodium Level 142 mmol/L Potassium Level 3.2 mmol/L Chloride Level 107 mmol/L Carbon Dioxide Level 27 mmol/L Anion Gap 8 Blood Urea Nitrogen 8 mg/dL Creatinine 0.7 mg/dL Estimated GFR (Cockcroft-Gault) 88.6 Glucose Level 84 mg/dL Calcium Level 8.3 mg/dL Imaging: CTA IMPRESSION: 1. The SMA is widely patent. No obvious stenosis or occlusion is seen. The etiology of the increased peak systolic velocities on the prior ultrasound is unclear, possibly transient spasm. 2. Moderate colonic stool content. No bowel obstruction. 3. Nonobstructing right lower pole renal calculus. PE: GEN: NAD NEURO/PSYCH: A & O 3, frustrated A/P: Abd pain -- D/w Dr. Sanabria, Dr. Horan, and Jacinda this morning. No additional GI recs - consider second opinion at [facility], our office can refer. They say EM was never done - discussed all with nurse - defer this and ?fainting to primary. Hemodynamically unstable?: No Is patient in severe pain?: Yes Is NPO status required?: No RAEGAN PETER Aug 21, 2019 11:58
--- NOTE | 2019-08-21 12:49 | NUR ---
Discharge Note: GLADYS PACHECO Discharge instructions and discharge home medications reviewed with Patient and a copy given. All questions have been answered and understanding verbalized. The following instructions and handouts were given: discharge instructions, new prescriptions, education and follow up recommendations. Discontinued lines and drains: Peripheral IV discontinued intact. Patient discharged to Home or Self Care with Spouse via Wheelchair off unit by RN.
== END 2019-08-21 12:54 | disposition home or self-care (01) | DRG 394 ==
LOC: 5 SOUTH 20:30
PROVIDERS: ADMIT Internal Medicine; ATTEND Internal Medicine
DX: K55.069 Acute infarction of intestine, part and extent unspecified (principal); E27.1 Primary adrenocortical insufficiency; N20.0 Calculus of kidney; M19.90 Unspecified osteoarthritis, unspecified site; G43.909 Migraine, unspecified, not intractable, without status migrainosus; F17.210 Nicotine dependence, cigarettes, uncomplicated; F32.9 Major depressive disorder, single episode, unspecified; F41.9 Anxiety disorder, unspecified; G62.9 Polyneuropathy, unspecified; G89.29 Other chronic pain; I10 Essential (primary) hypertension; K59.00 Constipation, unspecified; M79.7 Fibromyalgia; N28.1 Cyst of kidney, acquired; Z90.710 Acquired absence of both cervix and uterus; Z90.49 Acquired absence of other specified parts of digestive tract; Z82.49 Family history of ischemic heart disease and other diseases of the circulatory system; Z80.1 Family history of malignant neoplasm of trachea, bronchus and lung; J32.9 Chronic sinusitis, unspecified
CPT/HCPCS: 36415; 74018; 74174; 74250; 76770; 80048; 80053; 82533; 83605; 83615; 85025; 85027; 85651; 86140; 87804; J0834; J1100; J1170; J2060; J2212; J3010; J3490; J7030; J7040; Q9967; G0378

== ENCOUNTER → 2020-08-25 | Outpatient (CLI) | payer OTHER ==
[~2020-08-25] MED LIST changes: +NAPR-514 PO; +PRAM0.5T; +RIZA10TA7 PO; +TELM80TA8; +TRAZ150T49; +VERA240C4
--- NOTE | 2020-08-25 16:07 | KCIC ---
MRI STUDY OF THE RIGHT KNEE WITHOUT CONTRAST CLINICAL INDICATIONS: Right knee injury. Right knee swelling and pain. TECHNIQUE: T1 and T2 and proton density weighted MRI sequences of the right knee was performed. Image s were obtained in all 3 planes. FINDINGS: The anterior and posterior cruciate ligaments are intact. The quadriceps and patellar tendo ns are intact. The medial and lateral meniscus are intact. The medial collateral ligament is intact a nd no meniscocapsular separation is seen. The lateral collateral ligament complex and iliotibial band and popliteus tendon are intact. No posterior lateral corner injury is seen. No fracture or marrow i nfiltrative process is seen. There is moderate to severe chondromalacia with stress reaction bone mar row edema of the medial femoral condyle. There is mild degenerative spurring of the medial compartmen t. No focal osteochondral abnormality of the lateral tibiofemoral joint compartment is seen. The villafuerte lla is normally aligned. There is moderate chondromalacia patellae of the medial patellar facet with mild subchondral stress reaction bone marrow edema. Mild chondromalacia patellae of the lateral sinclair lar facet is seen. There is moderate chondromalacia of the central trochlear groove with stress react ion bone marrow edema. The medial and lateral retinacular ligaments are intact. No Vazquez's cyst is se en. Moderate-sized knee joint effusion is seen. No loose body is evident. IMPRESSION: No ligament or tendon or meniscal tear. 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 Electronically signed by: Roverto Pappas MD (08/25/2020 4:05 PM) [place] [id number]
== END ==
LOC: KCIC MRI 07:54
PROVIDERS: ATTEND Physician Assistant
DX: S89.91XA Unspecified injury of right lower leg, initial encounter (principal); M25.561 Pain in right knee; M25.461 Effusion, right knee; M22.42 Chondromalacia patellae, left knee; Y93.89 Activity, other specified; Y92.89 Other specified places as the place of occurrence of the external cause; Y99.8 Other external cause status
CPT/HCPCS: 73721